=== PATIENT | female | born 1955 | race Caucasian/White ===

== ENCOUNTER 2023-12-09 16:16 | Observation (INO) | payer OTHER, SELFPAY ==
--- NOTE | ~2023-12-09 | XR_ITS ---
EXAMINATION: XR chest 2V DATE: 12/09/2023 19:11 INDICATION: Upper abdominal pain. TECHNIQUE: Frontal and lateral views of the chest were obtained. COMPARISON: None. FINDINGS: There is no pneumonia, pleural effusion, or pneumothorax. The heart size is normal. Surgica l clips in the right upper quadrant are likely from cholecystectomy. IMPRESSION: 1. No acute cardiopulmonary disease. Reviewed, dictated and finalized at location A.
--- NOTE | 2023-12-09 16:43 | ECG_ITS ---
Test Date: 2023-12-09 17:26:56 Measurements Intervals [place] Rate: 55 P: 57 KS: 176 QRS: -22 QRSD: 129 T: 54 QT: 410 QTc: 393 Interpretive Statements SINUS BRADYCARDIA MODERATE INTRAVENTRICULAR CONDUCTION DELAY [105+ ms QRS DURATION, 80+ ms Q/S IN V1/V2, NO Q AND 60+ ms R IN I/aVL/V5/V6] VOLTAGE CRITERIA FOR LVH [MEETS CRITERIA IN ONE OF: R(aVL), S(V1), R(V5), R(V5/V6)+S(V1)] No previous ECG available for comparison Electronically Signed On 12-10-2023 13:33:13 CDT by Jeannette Flynn M.D.
[2023-12-09 16:49] VITALS: BP 148/81; PULSE 82; RESP 18; TEMP 36.4; O2SAT 100
[2023-12-09 17:11] LABS: Basophils Percent Auto 0.1 % (0.2-1.2); Hematocrit 37.2 % (37.0-47.0); Hemoglobin 12.6 g/dL (12.0-15.0); Immature Granulocyte Absolute 0.04 K/mm3 (0.00-0.031); Immature Granulocyte Percent A 0.4 % (0-0.5); Lymphocytes Absolute Auto 0.82 K/mm3 (0.9-3.2); Lymphocytes Percent Auto 8.8 % (18.3-44.2); Mean Corpuscular HGB Conc 33.9 g/dl (32-36); Mean Corpuscular Hemoglobin 30.2 pg (26-34); Mean Corpuscular Volume 89.2 fl (80-100); Mean Platelet Volume 12.2 fl (7.4-10.4); Monocytes Absolute Auto 0.8 K/mm3 (0.1-0.6); Monocytes Percent Auto 8.1 % (2.6-8.5); Neutrophils Absolute Auto 7.7 K/mm3 (1.3-6.7); Neutrophils Percent Auto 82.6 % (45.5-73.1); Platelet Count Result 220 k/mm3 (150-375); Red Blood Count 4.17 M/mm3 (4.2-5.4); Red Cell Distribution Width 13.7 % (11.5-14.5); White Blood Count 9.3 K/mm3 (4.5-10.0)
[2023-12-09 17:21] LABS: Alanine Aminotransferase 20 U/L (6-35); Albumin Level 4.4 g/dL (3.5-5.1); Alkaline Phosphatase 72 U/L (38-126); Anion Gap 11 mmol/L (4-12); Aspartate Amino Transferase 20 U/L (14-36); Bilirubin,Total 0.4 mg/dL (0.2-1.3); Blood Urea Nitrogen 28 mg/dL (7-17); Calcium 9.7 mg/dL (8.4-10.2); Carbon Dioxide 18 mmol/L (22-30); Chloride 96 mmol/L (98-107); Estimated Glomerular Filt Rate 41; Glucose 127 mg/dL (65-110); Potassium 4.9 mmol/L (3.4-5.0); Sodium 125 mmol/L (137-145)
[2023-12-09 17:22] LABS: Acetaminophen < 10 ug/mL (10-30); Salicylate < 1.0 mg/dL (2-20)
[2023-12-09 17:23] LABS: Ethanol < 10 mg/dL (<10)
[2023-12-09 17:44] LABS: Add Urine Microscopic? YES; Appearance Urine Cloudy (Clear); Bacteria Urine 3+ /hpf; Bilirubin Urine Negative (Negative); Blood Urine Negative (Negative); Color Urine Yellow (Yellow); Glucose Urine UA Negative (Negative); Ketones Urine Negative (Negative); Leukocyte Esterase Ur 1+ LEU/UL (Negative); Nitrate Urine Negative (Negative); Protein Urine Negative (Negative); Specific Grav Ur 1.016 (1.001-1.035); Squamous Epithelial Cell Urine Many /hpf (Few); Urobilinogen Urine 0.2 mg/dL (<2.0); pH Urine 5.5 (5.0-9.0)
[2023-12-09 17:46] LABS: Influenza A QL RT-PCR Negative (Negative); Influenza B QL RT-PCR Negative (Negative); RSV RNA, RT-PCR Negative (Negative); SARS-CoV-2 RNA PCR Negative (Negative)
[2023-12-09 18:00] LABS: Amphetamine Screen Urine Negative (Negative); Barbiturate Screen Urine Negative (Negative); Benzodiazepines Screen Urine Negative (Negative); Cannabinoid Screen Urine Negative (Negative); Cocaine Screen Urine Negative (Negative); Methadone Screen Urine Negative (Negative); Opiate Screen Urine Negative (Negative); Phencyclidine Screen Urine Negative (Negative)
[2023-12-09 18:29] LABS: Thyroid Stimulating Hormone Reflex < 0.015 uIU/mL (0.465-4.68)
[2023-12-09] MEDS: SODIUM CHLORIDE 0.9% IV 1,000 ML 999 ML IV CONT (18:45)
--- NOTE | 2023-12-09 18:57 | ED.PSYCH ---
HPI - Psych General Chief Complaint: Psychiatric Symptoms Stated Complaint: SI Time Seen by Provider: 12/09/23 16:57 History of Present Illness HPI Narrative: Patient is a 67-year-old female who presents to the ER because she started feeling suicidal 2-3 days ago. She reports she is to be on antidepressants and saw a psychiatrist but then was unable to afford that care anymore. Patient reports at that time she was on Zoloft and Effexor. She reports she has a primary care provider to started her on Wellbutrin but that didn't work. Patient reports she has increased stressors in her life recently because she recently found out she had been scammed out of $50,000 dollars over the last 2-3 years. She reports she is also concerned she is fine to lose family over this situation. Patient reports she had a plan to overdose on pills and that she ?just wants to go to sleep. She reports she has a history of high blood pressure, thyroid abnormalities, arthritis, high cholesterol, chronic kidney disease, GERD, depression. Patient reports she has not had many physical symptoms but had increased urination recently. Patient denies chest pain, shortness a breath, other signs/symptoms of being ill. Related Data Allergies Allergy/AdvReac Type Severity Reaction Status Date / Time Estrogens Allergy Flushing Verified 12/09/23 17:32 nifedipine [From Procardia] Allergy Flushing Verified 12/09/23 17:32 pneumococcal vaccine AdvReac Other Verified 12/09/23 17:33 Review of Systems Review of Systems: All systems reviewed & are unremarkable except as noted in HPI and below PMFSH Social History Social History Substance use type: does not use Exam Narrative: GENERAL: Well appearing, well-nourished, non-toxic, in no acute distress. HEAD: Normocephalic, atraumatic. NECK: Supple. No adenopathy, no masses. RESPIRATORY: Airway patent, respirations nonlabored. Clear to auscultation bilaterally, no rales, rhonchi, wheezing. CARDIOVASCULAR: Regular rate and rhythm without murmurs, rubs, or gallops. Peripheral pulses 2+ and equal bilaterally. Mildly edematous bilateral extremities. ABDOMINAL: Soft, nontender, nondistended, no hepatosplenomegaly. Normoactive BS. MUSCULOSKELETAL: Moves all extremities. Strength/ROM intact without gross deformities. SKIN: Warm, dry, normal color. No rashes. NEURO: A&O X3. Speech clear. Cranial nerves II-XII grossly intact. Steady gait. No ataxic movements. PSYCHIATRIC: Tearful and flat affect. Normal interaction. Course Vital Signs Vital signs: Vital Signs Temperature 36.4 C 12/09/23 16:49 Pulse Rate 82 12/09/23 16:49 Respiratory Rate 18 12/09/23 16:49 Blood Pressure 148/81 H 12/09/23 16:49 Pulse Oximetry 100 12/09/23 16:49 Oxygen Delivery Room Air 12/09/23 16:49 Temperature 36.6 C 12/09/23 23:20 Pulse Rate 60 12/09/23 23:20 Respiratory Rate 16 12/09/23 23:20 Blood Pressure 120/69 12/09/23 23:20 Pulse Oximetry 98 12/09/23 23:20 Oxygen Delivery Room Air 12/09/23 16:49 MDM - Psych MDM Narrative Medical decision making narrative: Patient is a 67-year-old female who presents to the ER because she started feeling suicidal 2-3 days ago. She reports she is to be on antidepressants and saw a psychiatrist but then was unable to afford that care anymore. Patient reports at that time she was on Zoloft and Effexor. She reports she has a primary care provider to started her on Wellbutrin but that didn't work. Patient reports she has increased stressors in her life recently because she recently found out she had been scammed out of $50,000 dollars over the last 2-3 years. She reports she is also concerned she is fine to lose family over this situation. Patient reports she had a plan to overdose on pills and that she ?just wants to go to sleep. She reports she has a history of high blood pressure, thyroi
[2023-12-09 19:00] VITALS: BP 139/71; PULSE 58; RESP 18; O2SAT 100
[2023-12-09 19:01] VITALS: BP 134/64; PULSE 59; RESP 17; O2SAT 100
[2023-12-09 19:16] VITALS: BP 147/77; PULSE 63; RESP 20; O2SAT 100
[2023-12-09] MEDS: FAMOTIDINE 20 MG/2 ML VIAL IV PUSH (19:25)
[2023-12-09] MEDS: LORazepam (*CRX) 1 MG TABLET PO (19:25)
[2023-12-09] MEDS: PANTOPRAZOLE SODIUM IV 40 MG VIAL IV PUSH (19:25)
[2023-12-09 19:34] LABS: Free T4 Free Thyroxine Reflex 1.78 ng/dL (0.78-2.19)
[2023-12-09 20:45] VITALS: PULSE 57; RESP 15; O2SAT 100
[2023-12-09 21:00] LABS: Total Triiodothyronine (T3) 0.89 NG/ML (0.97-1.69)
--- NOTE | 2023-12-09 21:03 | ED.PSYCH ---
HPI - Psych General Chief Complaint: Psychiatric Symptoms <Micheline Palmer APRN - Last Filed: 12/09/23 23:37> Stated Complaint: SI <Micheline Palmer APRN - Last Filed: 12/09/23 23:37> Time Seen by Provider: 12/09/23 16:57 <Micheline Palmer APRN - Last Filed: 12/09/23 23:37> History of Present Illness HPI Narrative: Patient is a 67-year-old female who presents to the ER with 2-3 days of feeling suicidal. <Micheline Palmer APRN - Last Filed: 12/09/23 23:37> Related Data Home Medications: Home Medications Medication Instructions Recorded Confirmed atenolol 50 mg tablet 50 mg PO Q12H 12/10/23 12/10/23 atorvastatin 20 mg tablet 20 mg PO HS 12/10/23 12/10/23 buspirone 5 mg tablet 5 mg PO HS 12/10/23 12/10/23 buspirone 5 mg tablet 10 mg PO DAILY 12/10/23 12/10/23 deutetrabenazine 9 mg tablet 18 mg PO Q12H 12/10/23 12/10/23 (Austedo) diltiazem HCl 240 mg 240 mg PO DAILY 12/10/23 12/10/23 capsule,extended release 24 hr gabapentin 300 mg capsule 300 mg PO Q12H 12/10/23 12/10/23 levothyroxine 100 mcg tablet 100 mcg PO DAILY 12/10/23 12/10/23 levothyroxine 88 mcg tablet 88 mcg PO DAILY 12/10/23 12/10/23 losartan 50 mg tablet 50 mg PO DAILY 12/10/23 12/10/23 omeprazole 20 mg capsule,delayed 20 mg PO HS 12/10/23 12/10/23 release potassium chloride 10 mEq 20 meq PO DAILY 12/10/23 12/10/23 tablet,extended release spironolactone 25 mg tablet 25 mg PO DAILY 12/10/23 12/10/23 topiramate 50 mg tablet 50 mg PO HS 12/10/23 12/10/23 warfarin 5 mg tablet 5 mg PO QPM 12/10/23 12/10/23 <Micheline Palmer APRN - Last Filed: 12/09/23 23:37> Allergies/Adverse Reactions: Allergies Allergy/AdvReac Type Severity Reaction Status Date / Time Estrogens Allergy Flushing Verified 12/09/23 17:32 nifedipine [From Procardia] Allergy Flushing Verified 12/09/23 17:32 pneumococcal vaccine AdvReac Other Verified 12/09/23 17:33 <Micheline Palmer APRN - Last Filed: 12/09/23 23:37> PMFSH Family History Family History: Family History (Updated 12/10/23 @ 05:12 by Michelle Caputo RN) Father Congestive heart failure <Micheline Palmer APRN - Last Filed: 12/09/23 23:37> Social History Social History: Social History Smoking status: Never smoker Alcohol intake: never Substance use: never Substance use type: does not use Do You Feel Safe in your Home?: Yes Lack of Transportation: No Lack of Food: Never True Current Housing: I Have Housing Concerned About Future Housing: No Difficulty Paying Gas/Electric Bills: No Difficulty Paying for Meds: No Currently Unemployed: No Education: Associate Degree Difficulty w/ Childcare or Family Care: No Spiritual care concerns: No <Micheline Palmer APRN - Last Filed: 12/09/23 23:37> Course AUDITOR/QUALITY/PA Physician Supervision This visit was performed by both a physician and an APC. I performed all aspects of the MDM as documented. <Tunde Todd MD - Last Filed: 12/10/23 06:42> Vital Signs Vital signs: Vital Signs Temperature 97.6 F 12/09/23 16:49 Pulse Rate 82 12/09/23 16:49 Respiratory Rate 18 12/09/23 16:49 Blood Pressure 148/81 H 12/09/23 16:49 Pulse Oximetry 100 12/09/23 16:49 Oxygen Delivery Room Air 12/09/23 16:49 Temperature 97.2 F L 12/10/23 01:30 Pulse Rate 58 L 12/10/23 01:30 Respiratory Rate 14 12/10/23 01:30 Blood Pressure 164/77 H 12/10/23 01:30 Pulse Oximetry 100 12/10/23 01:30 Oxygen Delivery Room Air 12/10/23 01:30 <Micheline Palmer, [employer] TRA[employer]IVER - Last Filed: 12/09/23 23:37> Vital Signs Temperature 97.6 F 12/09/23 16:49 Pulse Rate 82 12/09/23 16:49 Respiratory Rate 18 12/09/23 16:49 Blood Pressure 148/81 H 12/09/23 16:49 Pulse Oximetry 100 12/09/23 16:49 Oxygen Delivery Room Air 12/09/23 16:49 Temperature 97.2 F L 12/10/23 01:30 Pulse Rate 58
[2023-12-09 21:36] LABS: Lipase 74 U/L (23-300)
[2023-12-09 21:37] LABS: Lactic Acid Reflex 1.1 mmol/L (0.7-2.0)
[2023-12-09 21:49] LABS: Troponin I < 0.012 ng/mL (0.000-0.034)
[2023-12-09 22:58] LABS: INR 3.4; Prothrombin Time 34.4 Seconds (11.1-14.7)
[2023-12-09 23:20] VITALS: BP 120/69; PULSE 60; RESP 16; TEMP 36.6; O2SAT 98
[2023-12-10] MEDS: LACTATED RINGERS 1,000 ML 125 ML IV CONT ×2 (00:27→09:36)
--- NOTE | 2023-12-10 00:59 | PM.IMHP ---
H&P: HPI History of Present Illness Date/Time: 12/10/23 00:59 Chief Complaint: SI Narrative: This is a 67-year-old female with past medical history significant for depression, obesity, atrial fibrillation rate controlled anticoagulated, hypothyroidism, dyskinesia. Patient presents to the emergency room stating that she has thoughts of harming herself after some unfortunate events. Patient also has been out of her usual meds. Preliminary workup was significant for urinalysis with numerous WBCs present. EXAMINATION: XR chest 2V DATE: 12/09/2023 19:11 INDICATION: Upper abdominal pain. TECHNIQUE: Frontal and lateral views of the chest were obtained. COMPARISON: None. FINDINGS: There is no pneumonia, pleural effusion, or pneumothorax. The heart size is normal. Surgical clips in the right upper quadrant are likely from cholecystectomy. IMPRESSION: 1. No acute cardiopulmonary disease. Review of Systems Review of Systems: [facility] Family History Family History (Updated 12/10/23 @ 05:12 by Michelle Caputo RN) Father Congestive heart failure Social History Social History Smoking status: Never smoker Alcohol intake: never Substance use: never Substance use type: does not use Do You Feel Safe in your Home?: Yes Lack of Transportation: No Lack of Food: Never True Current Housing: I Have Housing Concerned About Future Housing: No Difficulty Paying Gas/Electric Bills: No Difficulty Paying for Meds: No Currently Unemployed: No Education: Associate Degree Difficulty w/ Childcare or Family Care: No Spiritual care concerns: No Meds Home Medications and Allergies Home Medications Medication Instructions Recorded Confirmed Type atenolol 50 mg tablet 50 mg PO Q12H 12/10/23 12/10/23 History atorvastatin 20 mg tablet 20 mg PO HS 12/10/23 12/10/23 History buspirone 5 mg tablet 5 mg PO HS 12/10/23 12/10/23 History buspirone 5 mg tablet 10 mg PO DAILY 12/10/23 12/10/23 History deutetrabenazine 9 mg tablet 18 mg PO Q12H 12/10/23 12/10/23 History (Austedo) diltiazem HCl 240 mg 240 mg PO DAILY 12/10/23 12/10/23 History capsule,extended release 24 hr gabapentin 300 mg capsule 300 mg PO Q12H 12/10/23 12/10/23 History levothyroxine 100 mcg tablet 100 mcg PO DAILY 12/10/23 12/10/23 History levothyroxine 88 mcg tablet 88 mcg PO DAILY 12/10/23 12/10/23 History losartan 50 mg tablet 50 mg PO DAILY 12/10/23 12/10/23 History omeprazole 20 mg capsule,delayed 20 mg PO HS 12/10/23 12/10/23 History release potassium chloride 10 mEq 20 meq PO DAILY 12/10/23 12/10/23 History tablet,extended release spironolactone 25 mg tablet 25 mg PO DAILY 12/10/23 12/10/23 History topiramate 50 mg tablet 50 mg PO HS 12/10/23 12/10/23 History warfarin 5 mg tablet 5 mg PO QPM 12/10/23 12/10/23 History Allergies Allergy/AdvReac Type Severity Reaction Status Date / Time Estrogens Allergy Flushing Verified 12/09/23 17:32 nifedipine [From Procardia] Allergy Flushing Verified 12/09/23 17:32 pneumococcal vaccine AdvReac Other Verified 12/09/23 17:33 Vital Signs Vital Signs - 24 hr 12/09/23 16:49 12/09/23 19:00 12/09/23 19:01 Temperature 97.6 F Pulse Rate 82 58 L 59 L Respiratory Rate 18 18 17 Blood Pressure 148/81 H 139/71 134/64 Pulse Oximetry 100 100 100 Oxygen Delivery Room Air 12/09/23 19:16 12/09/23 20:45 12/09/23 23:20 Temperature 97.8 F Pulse Rate 63 57 L 60 Respiratory Rate 20 15 16 Blood Pressure 147/77 H 120/69 Pulse Oximetry 100 100 98 Oxygen Delivery Exam Narrative: laying in stretcher Const: General: comfortable, no acute distress, well developed, alert, awake and average body habitus Nutritional Appearance: average body habitus Orientation/consciousness: patient oriented x3 HENMT: Head: normal to inspection, normocephalic and atraumatic Ears: hearing grossly normal bilaterally
--- NOTE | 2023-12-10 01:19 | ADMGEN ---
This patient, Sophia Salguero, was admitted to Intensive Care Unit-4 for SI precautions. Patient/family oriented to hospital policies and general routines including ID bracelet, bed and alarms, visiting hours, pain management, procedures, bathroom and other care routines, personal items, smoking policy, room service/diet, and visiting hours. Information on how to activate the Rapid Response Team has been discussed. Patient/Family are encouraged to report perceived risks to care and to ask questions if they do not understand what they are told or what they should do.
[2023-12-10 01:30] VITALS: BP 164/77; PULSE 58; RESP 14; TEMP 36.2; O2SAT 100
[2023-12-10] MEDS: ACETAMINOPHEN 500 MG TABLET 1000 MG PO ×2 (03:50→13:34)
[2023-12-10 04:48] VITALS: BMI 36.2
[2023-12-10 06:32] LABS: Hematocrit 35.4 % (37.0-47.0); Mean Corpuscular HGB Conc 33.9 g/dl (32-36); Mean Corpuscular Hemoglobin 30.2 pg (26-34); Mean Corpuscular Volume 88.9 fl (80-100); Mean Platelet Volume 12.4 fl (7.4-10.4); Platelet Count Result 203 k/mm3 (150-375); Red Blood Count 3.98 M/mm3 (4.2-5.4); Red Cell Distribution Width 13.9 % (11.5-14.5)
[2023-12-10 06:42] LABS: Anion Gap 9 mmol/L (4-12); Blood Urea Nitrogen 22 mg/dL (7-17); Calcium 9.4 mg/dL (8.4-10.2); Carbon Dioxide 17 mmol/L (22-30); Chloride 102 mmol/L (98-107); Estimated CRCL calculation 59 ml/min; Estimated Glomerular Filt Rate 50; Glucose 101 mg/dL (65-110); Magnesium 2.1 mg/dL (1.6-2.3); Potassium 4.4 mmol/L (3.4-5.0); Sodium 128 mmol/L (137-145)
[2023-12-10 07:33] VITALS: BP 150/76; PULSE 56; RESP 18; TEMP 36.9; O2SAT 98
[2023-12-10 10:32] VITALS: PULSE 64
[2023-12-10] MEDS: GABAPENTIN 300 MG CAPSULE PO ×2 (10:32→21:40)
[2023-12-10] MEDS: busPIRone HCL 5 MG TABLET 10 MG PO (10:32)
[2023-12-10] MEDS: atenoloL 50 MG TABLET PO ×2 (10:32→21:38)
[2023-12-10] MEDS: dilTIAZem HCL CD 240 MG CAP.24HR PO (10:33)
[2023-12-10] MEDS: LEVOTHYROXINE SODIUM 88 MCG TABLET PO (10:33)
[2023-12-10] MEDS: LEVOTHYROXINE SODIUM 100 MCG TABLET PO (10:33)
[2023-12-10] MEDS: LOSARTAN POTASSIUM 50 MG TABLET PO (10:34)
[2023-12-10] MEDS: POTASSIUM CHLORIDE 20 MEQ ER TABLET PO (10:34)
[2023-12-10] MEDS: SPIRONOLACTONE 25 MG TABLET PO (10:34)
[2023-12-10] MEDS: MAG HYDROX/AL HYDROX/SIMETH 30 ML UDC PO (11:16)
--- NOTE | 2023-12-10 13:35 | PM.IMPN ---
Progress Note: A&P Assessment and Plan (1) Acute hyponatremia: Code(s): E87.1 - Hypo-osmolality and hyponatremia Status: Acute (2) Depression with suicidal ideation: Code(s): F32.A - Depression, unspecified; R45.851 - Suicidal ideations Status: Acute (3) Urinary tract infection: Code(s): N39.0 - Urinary tract infection, site not specified Status: Acute (4) Acute kidney injury: Code(s): N17.9 - Acute kidney failure, unspecified Status: Acute Plan This is a 67-year-old female who presents to the ER with suicidal thought. She reports she used to be on antidepressant and cell psychiatrist but then was unable to afford that care anymore. Patient was on Zoloft and Effexor. She recently saw her primary care provider and was started on Wellbutrin but that did not work. Patient reports increased stressor in her life recently because she recently found out that she had been scanned out of 50,000 dollar over the last 2-3 years. She reports she is concerned she is fine to lose family over the situation. Patient reported she had a plan to overdose on pills and that she just wants to go to sleep. She was admitted in this setting. On ED evaluation or vitals were stable. Laboratory evaluation showed WBC of 9.3 hemoglobin 12.6 platelet 220. Sodium level 125 potassium 4.9 chloride 96 bicarbonate 18 anion gap of 11. Creatinine 1.3 glucose 127. LFTs were within normal limit. Troponin was negative lipase normal. TSH less than 0.015 with total T3 of 0.89. Urinalysis showed evidence UTI. She received IV fluid normal saline antibiotics with IV ceftriaxone. She is admitted for further treatment for UTI. Hyponatremia mild improves with IV fluid. UTI on ceftriaxone follow urine culture Depression with suicidal thought: Crisis team to see once sodium level normalizes or improves Atrial fibrillation on atenolol and diltiazem and warfarin INR 3.4 will hold warfarin tonight Hypothyroidism Hyper tension Hyperlipidemia Tardive dyskinesia Code status full code DVT prophylaxis on warfarin Subjective Date/time seen: 12/10/23 13:35 Interval history: Continues to have suicidal thought. Urinary frequency reported. No other complaints. Have been dealing with depression for a while Review of Systems Review of Systems: All systems reviewed & are unremarkable except as noted in HPI and below Exam Narrative: GENERAL: Well appearing, well-nourished, non-toxic, in no acute distress. HEAD: Normocephalic, atraumatic. NECK: Supple. No adenopathy, no masses. RESPIRATORY: Airway patent, respirations nonlabored. Clear to auscultation bilaterally, no rales, rhonchi, wheezing. CARDIOVASCULAR: Regular rate and rhythm without murmurs, rubs, or gallops. Peripheral pulses 2+ and equal bilaterally. Mildly edematous bilateral extremities. ABDOMINAL: Soft, nontender, nondistended, no hepatosplenomegaly. Normoactive BS. MUSCULOSKELETAL: Moves all extremities. Strength/ROM intact without gross deformities. SKIN: Warm, dry, normal color. No rashes. NEURO: A&O X3. Speech clear. Cranial nerves II-XII grossly intact. Steady gait. No ataxic movements. PSYCHIATRIC: Tearful and flat affect. Normal interaction. Objective Data Vital Signs Vital Signs: Vital Signs - 24 hr 12/09/23 16:49 12/09/23 19:00 12/09/23 19:01 Temperature 97.6 F Pulse Rate 82 58 L 59 L Respiratory Rate 18 18 17 Blood Pressure 148/81 H 139/71 134/64 Pulse Oximetry 100 100 100 Oxygen Delivery Room Air 12/09/23 19:16 12/09/23 20:45 12/09/23 23:20 Temperature 97.8 F Pulse Rate 63 57 L 60 Respiratory Rate 20 15 16 Blood Pressure 147/77 H 120/69 Pulse Oximetry 100 100 98 Oxygen Delivery 12/10/23 01:30 12/10/23 01:30 12/10/23 07:33 Temperature 97.2 F L 98.5 F Pulse Rate 58 L 56 L Respiratory Rate 14 18 Blood Pressure 164/77 H 150/76 H Pulse Oximetry 100 98 Oxygen Delivery Room Air 12/10/23 08:00 12/10/23
[2023-12-10 16:00] VITALS: BP 101/67; PULSE 62; RESP 20; TEMP 36.9; O2SAT 97
[2023-12-10 21:38] VITALS: PULSE 65
[2023-12-10] MEDS: ATORVASTATIN 20 MG TABLET PO (21:38)
[2023-12-10] MEDS: busPIRone HCL 5 MG TABLET PO (21:38)
[2023-12-10] MEDS: PANTOPRAZOLE 40 MG TABLET PO (21:40)
[2023-12-10] MEDS: TOPIRAMATE 25 MG TABLET 50 MG PO (21:40)
[2023-12-10] MEDS: SIMETHICONE 80 MG TAB.CHEW PO (21:47)
[2023-12-11] VITALS: BP 122/62; PULSE 63; RESP 18; TEMP 36.4; O2SAT 99
[2023-12-11 04:50] LABS: Basophils Percent Auto 0.1 % (0.2-1.2); Eosinophils Percent Auto 0.2 % (0-4.4); Hematocrit 38.8 % (37.0-47.0); Hemoglobin 13.1 g/dL (12.0-15.0); Immature Granulocyte Absolute 0.04 K/mm3 (0.00-0.031); Immature Granulocyte Percent A 0.4 % (0-0.5); Lymphocytes Absolute Auto 2.01 K/mm3 (0.9-3.2); Lymphocytes Percent Auto 21.7 % (18.3-44.2); Mean Corpuscular HGB Conc 33.8 g/dl (32-36); Mean Corpuscular Hemoglobin 30.5 pg (26-34); Mean Corpuscular Volume 90.2 fl (80-100); Mean Platelet Volume 12.4 fl (7.4-10.4); Monocytes Absolute Auto 1.2 K/mm3 (0.1-0.6); Neutrophils Percent Auto 64.6 % (45.5-73.1); Platelet Count Result 241 k/mm3 (150-375); Red Cell Distribution Width 14.3 % (11.5-14.5); White Blood Count 9.3 K/mm3 (4.5-10.0)
[2023-12-11 05:23] LABS: Alanine Aminotransferase 25 U/L (6-35); Albumin Level 3.9 g/dL (3.5-5.1); Alkaline Phosphatase 66 U/L (38-126); Anion Gap 7 mmol/L (4-12); Aspartate Amino Transferase 22 U/L (14-36); Bilirubin,Total 0.6 mg/dL (0.2-1.3); Blood Urea Nitrogen 22 mg/dL (7-17); Calcium 9.6 mg/dL (8.4-10.2); Carbon Dioxide 22 mmol/L (22-30); Chloride 103 mmol/L (98-107); Estimated CRCL calculation 50 ml/min; Estimated Glomerular Filt Rate 41; Glucose 105 mg/dL (65-110); Magnesium 2.3 mg/dL (1.6-2.3); Potassium 4.4 mmol/L (3.4-5.0); Sodium 132 mmol/L (137-145)
[2023-12-11] MEDS: LEVOTHYROXINE SODIUM 88 MCG TABLET PO (06:54)
[2023-12-11] MEDS: LEVOTHYROXINE SODIUM 100 MCG TABLET PO (06:54)
[2023-12-11 08:00] VITALS: BP 114/64; PULSE 67; RESP 16; TEMP 37; O2SAT 97
[2023-12-11 08:49] LABS: INR 2.3; Prothrombin Time 25.3 Seconds (11.1-14.7)
[2023-12-11 10:07] VITALS: PULSE 67
[2023-12-11] MEDS: atenoloL 50 MG TABLET PO (10:07)
[2023-12-11] MEDS: dilTIAZem HCL CD 240 MG CAP.24HR PO (10:08)
[2023-12-11] MEDS: busPIRone HCL 5 MG TABLET 10 MG PO (10:08)
[2023-12-11] MEDS: GABAPENTIN 300 MG CAPSULE PO (10:08)
[2023-12-11] MEDS: POTASSIUM CHLORIDE 20 MEQ ER TABLET PO (11:03)
[2023-12-11] MEDS: SPIRONOLACTONE 25 MG TABLET PO (11:03)
[2023-12-11] MEDS: LOSARTAN POTASSIUM 50 MG TABLET PO (11:03)
--- NOTE | 2023-12-11 13:49 | PM.IMPN ---
Progress Note: A&P Assessment and Plan (1) Acute hyponatremia: Code(s): E87.1 - Hypo-osmolality and hyponatremia Status: Acute (2) Depression with suicidal ideation: Code(s): F32.A - Depression, unspecified; R45.851 - Suicidal ideations Status: Acute (3) Urinary tract infection: Code(s): N39.0 - Urinary tract infection, site not specified Status: Acute (4) Acute kidney injury: Code(s): N17.9 - Acute kidney failure, unspecified Status: Acute Plan This is a 67-year-old female who presents to the ER with suicidal thought. She reports she used to be on antidepressant and cell psychiatrist but then was unable to afford that care anymore. Patient was on Zoloft and Effexor. She recently saw her primary care provider and was started on Wellbutrin but that did not work. Patient reports increased stressor in her life recently because she recently found out that she had been scanned out of 50,000 dollar over the last 2-3 years. She reports she is concerned she is fine to lose family over the situation. Patient reported she had a plan to overdose on pills and that she just wants to go to sleep. She was admitted in this setting. On ED evaluation or vitals were stable. Laboratory evaluation showed WBC of 9.3 hemoglobin 12.6 platelet 220. Sodium level 125 potassium 4.9 chloride 96 bicarbonate 18 anion gap of 11. Creatinine 1.3 glucose 127. LFTs were within normal limit. Troponin was negative lipase normal. TSH less than 0.015 with total T3 of 0.89. Urinalysis showed evidence UTI. She received IV fluid normal saline antibiotics with IV ceftriaxone. She is admitted for further treatment for UTI. Hyponatremia mild improves with IV fluid. Sodium level improving UTI on ceftriaxone follow urine culture which showed mixed genital gala. Will switch to oral to complete the course Depression with suicidal thought: Crisis team to see once sodium level normalizes or improves Atrial fibrillation on atenolol and diltiazem and warfarin INR 3.4 hell warfarin and will be resumed as home doses Hypothyroidism Hyper tension Hyperlipidemia Tardive dyskinesia Code status full code DVT prophylaxis on warfarin Medically stable for discharge. Crisis team to see Subjective Date/time seen: 12/11/23 13:49 Interval history: No overnight events. Urine is feeling better. Sodium level has improved. Still getting suicidal thought Exam Narrative: GENERAL: Well appearing, well-nourished, non-toxic, in no acute distress. HEAD: Normocephalic, atraumatic. NECK: Supple. No adenopathy, no masses. RESPIRATORY: Airway patent, respirations nonlabored. Clear to auscultation bilaterally, no rales, rhonchi, wheezing. CARDIOVASCULAR: Regular rate and rhythm without murmurs, rubs, or gallops. Peripheral pulses 2+ and equal bilaterally. Mildly edematous bilateral extremities. ABDOMINAL: Soft, nontender, nondistended, no hepatosplenomegaly. Normoactive BS. MUSCULOSKELETAL: Moves all extremities. Strength/ROM intact without gross deformities. SKIN: Warm, dry, normal color. No rashes. NEURO: A&O X3. Speech clear. Cranial nerves II-XII grossly intact. Steady gait. No ataxic movements. PSYCHIATRIC: Tearful and flat affect. Normal interaction. Objective Data Vital Signs Vital Signs: Vital Signs - 24 hr 12/10/23 16:00 12/10/23 21:38 12/11/23 00:00 Temperature 98.4 F 97.6 F Pulse Rate 62 65 63 Respiratory Rate 20 18 Blood Pressure 101/67 122/62 Pulse Oximetry 97 99 12/11/23 08:00 12/11/23 10:07 Temperature 98.6 F Pulse Rate 67 67 Respiratory Rate 16 Blood Pressure 114/64 Pulse Oximetry 97 Intake/Output Intake/Output: Intake & Output 12/08/23 12/09/23 12/10/23 12/11/23 23:59 23:59 23:59 23:59 Intake Total 1050 2420 700 Balance 1050 2420 700 Meds/Results Medications: Active Medications Generic Name Dose Route Start Last Admin Trade Name Freq PRN Reason Stop Dose Admin Ac
[2023-12-11 16:00] VITALS: BP 100/60; PULSE 52; RESP 16; TEMP 36.6; O2SAT 99
[2023-12-11] MEDS: ACETAMINOPHEN 500 MG TABLET 1000 MG PO (16:08)
--- NOTE | 2023-12-11 18:48 | PM.TDS ---
Transfer Discharge Sum: Prov Provider Date of admission: 12/10/23 00:06 Primary care physician: Tawnya Benitez, DO Admitting clinician: Padmini London MD DS: Admitting Diagnosis Discharge Date 12/11/2023 Admitting Diagnosis suicidal ideation DS: Discharge Diagnosis Discharge Diagnosis (1) Acute hyponatremia: Code(s): E87.1 - Hypo-osmolality and hyponatremia Status: Acute (2) Depression with suicidal ideation: Code(s): F32.A - Depression, unspecified; R45.851 - Suicidal ideations Status: Acute (3) Urinary tract infection: Code(s): N39.0 - Urinary tract infection, site not specified Status: Acute (4) Acute kidney injury: Code(s): N17.9 - Acute kidney failure, unspecified Status: Acute Transfer Discharge Sum: Med Medications Active and Home Medications: Home Medications atenolol 50 mg tablet 50 mg PO Q12H 12/10/23 [History Confirmed 12/10/23] atorvastatin 20 mg tablet 20 mg PO HS 12/10/23 [History Confirmed 12/10/23] buspirone 5 mg tablet 5 mg PO HS 12/10/23 [History Confirmed 12/10/23] buspirone 5 mg tablet 10 mg PO DAILY 12/10/23 [History Confirmed 12/10/23] deutetrabenazine 9 mg tablet (Austedo) 18 mg PO Q12H 12/10/23 [History Confirmed 12/10/23] diltiazem HCl 240 mg capsule,extended release 24 hr 240 mg PO DAILY 12/10/23 [History Confirmed 12/10/23] gabapentin 300 mg capsule 300 mg PO Q12H 12/10/23 [History Confirmed 12/10/23] levothyroxine 100 mcg tablet 100 mcg PO DAILY 12/10/23 [History Confirmed 12/10/23] levothyroxine 88 mcg tablet 88 mcg PO DAILY 12/10/23 [History Confirmed 12/10/23] losartan 50 mg tablet 50 mg PO DAILY 12/10/23 [History Confirmed 12/10/23] omeprazole 20 mg capsule,delayed release 20 mg PO HS 12/10/23 [History Confirmed 12/10/23] potassium chloride 10 mEq tablet,extended release 20 meq PO DAILY 12/10/23 [History Confirmed 12/10/23] spironolactone 25 mg tablet 25 mg PO DAILY 12/10/23 [History Confirmed 12/10/23] topiramate 50 mg tablet 50 mg PO HS 12/10/23 [History Confirmed 12/10/23] warfarin 5 mg tablet 5 mg PO QPM 12/10/23 [History Confirmed 12/10/23] Active Medications Acetaminophen (Acetaminophen 500 Mg Tablet) 1,000 mg PO Q6H PRN PRN Reason: Mild Pain (1-3) or Fever Last Admin: 12/11/23 16:08 Dose: 1,000 mg Al Hydrox/Mg Hydrox/Simethicone (Mag Hydrox/Al Hydrox/Simeth 30 Ml Udc) 30 ml PO Q6H PRN PRN Reason: Indigestion Last Admin: 12/10/23 11:16 Dose: 30 ml Atenolol (Atenolol 50 Mg Tablet) 50 mg PO Q12HR [facility] Last Admin: 12/11/23 10:07 Dose: 50 mg Atorvastatin Calcium (Atorvastatin 20 Mg Tablet) 20 mg PO HS [facility] Last Admin: 12/10/23 21:38 Dose: 20 mg Buspirone HCl (Buspirone Hcl 5 Mg Tablet) 5 mg PO HS [facility] Last Admin: 12/10/23 21:38 Dose: 5 mg Buspirone HCl (Buspirone Hcl 5 Mg Tablet) 10 mg PO DAILY [facility] Last Admin: 12/11/23 10:08 Dose: 10 mg Cephalexin HCl (Cephalexin 500 Mg Capsule) 500 mg PO Q12HR [facility] Stop: 12/16/23 20:59 Diltiazem HCl (Diltiazem Hcl Cd 240 Mg Cap.24hr) 240 mg PO DAILY [facility] Last Admin: 12/11/23 10:08 Dose: 240 mg Gabapentin (Gabapentin 300 Mg Capsule) 300 mg PO Q12HR [facility] Last Admin: 12/11/23 10:08 Dose: 300 mg Levothyroxine Sodium (Levothyroxine Sodium 88 Mcg Tablet) 88 mcg PO DAILY@0630 [facility] Last Admin: 12/11/23 06:54 Dose: 88 mcg Levothyroxine Sodium (Levothyroxine Sodium 100 Mcg Tablet) 100 mcg PO DAILY@0630 [facility] Last Admin: 12/11/23 06:54 Dose: 100 mcg Losartan Potassium (Losartan Potassium 50 Mg Tablet) 50 mg PO DAILY [facility] Last Admin: 12/11/23 11:03 Dose: 50 mg Miscellaneous Information (Deutetrabenazine [Austedo] 9 Mg Non Formulary) 0 each XX [facility] Stop: 01/09/24 00:00 Non-Formulary Medication (Deutetrabenazine [Austedo]) 18 mg PO Q12H [facility] Stop: 01/09/24 09:44 Ondansetron HCl (Ondansetron Inj 4 Mg/2 Ml Vial) 4 mg IV PUSH Q6H PRN PRN Reason: Nausea And Vomiting Pantoprazole Sodium (Pantoprazole 40 Mg Tablet) 40 mg PO HS [facility] Stop: 11
== END 2023-12-11 18:52 ==
LOC: ANHED 12-10 00:06 → ANHICU 12-10 05:11
PROVIDERS: Emergency Medicine; Admitting Provider Internal Medicine; Emergency Provider Registered Nurse; PCP Student in an Organized Health Care Education/Training Program; Visit Provider Internal Medicine
DX: N39.0 Urinary tract infection, site not specified (principal); R45.851 Suicidal ideations; F32.A Depression, unspecified; E87.1 Hypo-osmolality and hyponatremia; I12.9 Hypertensive chronic kidney disease with stage 1 through stage 4 chronic kidney disease, or unspecified chronic kidney disease; N18.9 Chronic kidney disease, unspecified; N17.9 Acute kidney failure, unspecified; G24.01 Drug induced subacute dyskinesia; E03.9 Hypothyroidism, unspecified; E66.9 Obesity, unspecified; Z68.36 Body mass index [BMI] 36.0-36.9, adult; I48.91 Unspecified atrial fibrillation; M19.90 Unspecified osteoarthritis, unspecified site; E78.00 Pure hypercholesterolemia, unspecified; K21.9 Gastro-esophageal reflux disease without esophagitis; Z11.52 Encounter for screening for COVID-19; Z59.86 Financial insecurity; Z79.01 Long term (current) use of anticoagulants; Z79.899 Other long term (current) drug therapy
CPT/HCPCS: 36415; 71046; 80048; 80053; 80143; 80179; 80307; 81001; 82077; 83605; 83690; 83735; 84100; 84439; 84443; 84480; 84484; 85025; 85027; 85610; 85730; 87040; 87086; 87637; 93005; 96361; 96365; 96375; 96376; 99285; A9270; G0378; J0696; J2470; J7030; J7120